=== PATIENT | female | born 1960 | race Caucasian/White ===

== ENCOUNTER 2024-10-16 14:22 | Emergency (ER) | payer BC, SELFPAY ==
[2024-10-16 14:26] VITALS: BP 121/76
[2024-10-16 14:41] LABS: % Basophils 0.6 % (0-2); % Eosinophils 1.2 % (0-6); % Immature Granulocytes 0.4 % (0-0.5); % Monocytes 7.8 % (1.7-9.3); Absolute Eosinophils 0.1 10^3/uL (0-0.7); Absolute Lymphocytes 2.3 10^3/uL (1.2-3.4); Absolute Monocytes 0.5 10^3/uL (0.1-0.6); Absolute Neutrophils 3.8 10^3/uL (1.4-6.5); Hemoglobin 13.8 g/dL (12.0-16.0); Mean Corp Hgb Conc. 34.5 g/dL (33.0-37.0); Mean Corpuscular Hgb 31.3 pg (27.0-31.0); Mean Corpuscular Volume 90.7 fL (81.0-99.0); Mean Platelet Volume 9.9 fL (7.4-10.4); Nucleated Red Blood Cells % 0 %; Platelet Count 301 10^3/uL (130-400); Red Blood Cell Count 4.41 10^6/uL (4.20-5.40); Red Cell Dist. Width 12.6 % (11.5-14.5); White Blood Cell Count 6.8 10^3/uL (4.8-10.8)
[2024-10-16 14:54] LABS: ALT (SGPT) 18 U/L (0-35); AST (SGOT) 29 U/L (14-36); Albumin 4.9 g/dl (3.5-5.0); Alkaline Phosphatase 62 U/L (38-126); Blood Urea Nitrogen 16 mg/dl (7-17); Calcium 9.3 mg/dl (8.4-10.2); Carbon Dioxide 27 mmol/L (22-30); Chloride 105 mmol/L (98-107); Glucose 69 mg/dl (70-99); Potassium 4.4 mmol/L (3.5-5.1); Sodium 142 mmol/L (135-145); Total Bilirubin 0.3 mg/dl (0.2-1.3); Total Protein 7.6 g/dl (6.3-8.2); eGFR > 60.00
[2024-10-16 18:36] VITALS: BP 122/79
--- NOTE | 2024-10-16 19:10 | ED.GENMED ---
Addendum entered and electronically signed by WINIFRED Paz 10/17/24 01:31:
Sed rate and CRP normal. Glucose slightly low, encouraged patient to eat.
Original Note:
History of Present Illness
General
Chief Complaint: Headache
Source: patient
Exam Limitations: none
Time Seen by Provider: 10/16/24 19:00
History of Present Illness
History of Present Illness:
This is a 64 year old female that comes in with c/o right sided headache pain. States that this started yesterday and it doesn't feel like a normal headache. States that it is pressure. States that she felt worse today so she felt she better get it
checked. States that she was a little nauseated with the headache in the morning. Denies any fever, chills, chest pain, SOB, abd pain, vomiting, diarrhea, dizziness, urinary burning.
Past History
Past History
ED Past Medical History: Asthma, Psychiatric (Depression) and Other (Cervical dystonia, PNA)
ED Past Surgical History: , Gynecological (Hyesterectomy) and Other (hernia)
Social History
Tobacco: Non-smoker
Alcohol: None
Drug: None
Personal:
Living: with family
Review of Systems
Review of Systems
All Other Systems: ROS reviewed and negative except as documented in HPI and ROS
Constitutional: Reports no symptoms; Denies fever or chills
EENT: Reports no symptoms
Respiratory: Reports no symptoms; Denies cough or trouble breathing
Cardiac: Reports no symptoms; Denies chest pain
ABD/GI: Reports nausea; Denies abdominal pain, vomiting or diarrhea
: Reports no symptoms; Denies dysuria, frequency or urgency
Musculoskeletal: Reports no symptoms
Skin: Reports no symptoms
Neurological: Reports headache (right sided); Denies dizzy
Psychiatric: Reports no symptoms
Phy Exam
General Physical Exam
General Presentation: well appearing and no apparent distress
General age: appears stated age
General Skin: warm and dry
General Habitus: normal
General Mental: alert
General Hydration: appears well hydrated
ENT Exam
ENT Exam: TM's normal, pharynx normal and neck supple
Eye Exam
Eye Exam: EOMI
Cardiovascular Exam
Cardiovascular Exam: regular rate/rhythm, no edema, no murmur and normal peripheral pulses
Pulmonary Exam
Pulmonary Exam: lungs clear, no respiratory distress, no rales, chest non tender, no crackles, no rhonchi, no wheezing and no cough
Musculoskeletal Exam
Musculoskeletal Exam: full ROM (Patient walked into the exam room)
Skin Exam
Skin Exam: normal color, warm/dry, no rash and no petechia
Psychiatric Exam
Psychiatric Exam: normal mood/affect
Course
Orders/Labs/Results
Orders:
Orders
10/16/24 14:29
CT Head W/o Iv Contrast Urgent
Comment: intermit nausea
Reason For Exam: pressure to right side of head since yesterday
10/16/24 14:35
Complete Blood Count/With Diff Urgent
Comprehensive Metabolic Panel Urgent
10/16/24 19:10
Add On- LAB Urgent
Tests Added?: Sed rate, CRP
Abnormal Lab Results
10/16/24
14:35
MCH 31.3 H pg
(27.0-31.0)
Glucose 69 L mg/dl
(70-99)
10/16/24 14:35
10/16/24 14:35
Glucose slightly low
Vital Signs
Initial and Last Documented VS:
Initial Vital Signs
Temp Pulse Resp BP Pulse Ox
97.8 F 78 16 121/76 78
10/16/24 14:26 10/16/24 14:26 10/16/24 14:26 10/16/24 14:26 10/16/24 14:26
Last Documented Vital Signs
Temp Pulse Resp BP Pulse Ox
98.2 F 72 16 122/79 100
10/16/24 18:36 10/16/24 18:36 10/16/24 18:36 10/16/24 18:36 10/16/24 18:36
MDM/Problems Addressed
Differential Diagnosis Includes:
Headache, Shingles. Trigeminal neuralgia
MDM/Problems Addressed:
This is a 64 year old female that comes in with c/o right sided headache pain.
Labs and CT of head obtained. Will add Sed rate and CRP.
Explained to patient that her CT of the head and blood work is normal. Will add on other labs. Patient to alternate with Tylenol and Ibuprofen. Will also watch for any rash and follow up with the family doctor for further evaluation. Patient to
return with any concerns.
Chronic conditions affecting care:
NA
Acute Exacerbation and/or Progression of Chronic Illness:
NA
*Radiology
Radiology exam reviewed: radiology read reviewed (CT head-NO acute intracranial abnormality noted. )
*Pulse Oximetry
Patient hypoxic: no
*EKG
Interpreted by ED Provider?: NA
Rate: EKG- N/A
*Manager Music Interpretation
Rate: Manager Music- N/A
*Critical Care Note
Total Time (30-74mins, 75-104mins- exclusive of procedures): Not Applicable
ED Attending Note
-
Portions of this chart may have been created with voice recognition software.� Occasional wrong word or��sound alike� substitutions may have occurred due to the inherent limitations of voice recognition software.
Discharge Plan
Departure
Patient Disposition: Home (Routine Discharge)
Date of Disposition: 10/16/24
Time of Disposition: 19:16
Patient with high blood pressure during this ER visit?: No
Condition: Good
Covid-19: Not Applicable
Discharge Problem:
Headache
Instructions: Headache, Adult (DC)
Prescriptions:
No Action
calcium carbonate [Calcium 500] 500 MG tablet
500 mg PO DAILY
esomeprazole magnesium [Nexium] 40 MG capsule,delayed release(DR/EC)
40 mg PO DAILY
sertraline 25 MG tablet
25 mg PO DAILY
[id number]-pxu-[id number]-Wa-Rm-pzwgifl-lutein 1 EACH tablet
1 tab PO DAILY
VITAMIN C
DAILY
VITAMIN D
DAILY
dicyclomine [Bentyl] 20 MG tablet
20 mg PO Q6H PRN (Reason: abdominal pain) Qty: 20 0RF
hydrocodone-acetaminophen 5-325 mg tablet
1 tab PO Q8H PRN (Reason: pain) Qty: 10 0RF
prednisone 10 mg Tablet
See Rx Instructions .ROUTE .COMPLEX Qty: 30 0RF
Rx Instructions:
Take By Mouth:
40 mg daily x3 days, 30 mg daily x3 days,
20 mg daily x3 days, 10 mg daily x3 days.
Activity Restrictions/Additional Instructions:
As discussed, your blood work is normal along with your CT scan. Please watch for any rash on the right sided of the face or head. Further blood work was added to the blood work that you have drawn earlier. Please increase your water intake to 8-8oz
glasses daily. You may use Tylenol 1000mg every 6 hours and Ibuprofen 600mg every 6 hours with food for headache pain. Please alternate them, so if you take Tylenol at 9am you can take Ibuprofen at 12 noon and then the Tylenol again at 3pm and the
Ibuprofen at 6pm. Follow up with the family doctor for further evaluation. IF YOU HAVE INCREASED OR CHANGING HEADACHE PAIN, OR YOU HAVE ANY OTHER CONCERNS PLEASE RETURN TO THE EMERGENCY ROOM.
Interventions
Interventions:
*Risk Screen - Suicide Last Done: 10/16/24 14:26
*Neglect/Abuse Screening Last Done: 10/16/24 14:26
Discharge Date and Time
Print Language: ITALIAN
[2024-10-16 19:30] LABS: Erythrocyte Sed Rate 15 mm/hour (0-20)
[2024-10-16 20:05] LABS: C-Reactive Protein < 5.00 mg/L (0.0-10.00)
--- NOTE | 2024-10-17 01:29 | ED.GENMED ---
History of Present Illness
General
Chief Complaint: Headache
Time Seen by Provider: 10/16/24 19:00
Past History
Past History
ED Past Medical History: Asthma, Psychiatric (Depression) and Other (Cervical dystonia, PNA)
ED Past Surgical History: , Gynecological (Hyesterectomy) and Other (hernia)
Social History
Tobacco: Non-smoker
Alcohol: None
Drug: None
Personal:
Living: with family
Course
Orders/Labs/Results
Orders:
Orders
10/16/24 14:29
CT Head W/o Iv Contrast Urgent
Comment: intermit nausea
Reason For Exam: pressure to right side of head since yesterday
10/16/24 14:35
C-Reactive Protein Urgent
Comment: ADD ON
Complete Blood Count/With Diff Urgent
Comprehensive Metabolic Panel Urgent
Erythrocyte Sed Rate Urgent
Comment: ADD ON
10/16/24 19:10
Add On- LAB Urgent
Tests Added?: Sed rate, CRP
Abnormal Lab Results
10/16/24
14:35
MCH 31.3 H pg
(27.0-31.0)
Glucose 69 L mg/dl
(70-99)
10/16/24 14:35
10/16/24 14:35
Glucose very slightly low, Patient encouraged to eat Sed rate normal at 15, CRP Normal <5.0
Vital Signs
Initial and Last Documented VS:
Initial Vital Signs
Temp Pulse Resp BP Pulse Ox
97.8 F 78 16 121/76 78
10/16/24 14:26 10/16/24 14:26 10/16/24 14:26 10/16/24 14:26 10/16/24 14:26
Last Documented Vital Signs
Temp Pulse Resp BP Pulse Ox
98.2 F 72 16 122/79 100
10/16/24 18:36 10/16/24 18:36 10/16/24 18:36 10/16/24 18:36 10/16/24 18:36
ED Attending Note
-
Portions of this chart may have been created with voice recognition software.� Occasional wrong word or��sound alike� substitutions may have occurred due to the inherent limitations of voice recognition software.
Discharge Plan
Departure
Patient Disposition: Home (Routine Discharge)
Date of Disposition: 10/16/24
Time of Disposition: 19:16
Patient with high blood pressure during this ER visit?: No
Condition: Good
Covid-19: Not Applicable
Discharge Problem:
Headache
Instructions: Headache, Adult (DC)
Prescriptions:
No Action
calcium carbonate [Calcium 500] 500 MG tablet
500 mg PO DAILY
esomeprazole magnesium [Nexium] 40 MG capsule,delayed release(DR/EC)
40 mg PO DAILY
sertraline 25 MG tablet
25 mg PO DAILY
[id number]-jfa-VC-Bu-Ge-jhhrdqd-lutein 1 EACH tablet
1 tab PO DAILY
VITAMIN C
DAILY
VITAMIN D
DAILY
dicyclomine [Bentyl] 20 MG tablet
20 mg PO Q6H PRN (Reason: abdominal pain) Qty: 20 0RF
hydrocodone-acetaminophen 5-325 mg tablet
1 tab PO Q8H PRN (Reason: pain) Qty: 10 0RF
prednisone 10 mg Tablet
See Rx Instructions .ROUTE .COMPLEX Qty: 30 0RF
Rx Instructions:
Take By Mouth:
40 mg daily x3 days, 30 mg daily x3 days,
20 mg daily x3 days, 10 mg daily x3 days.
Activity Restrictions/Additional Instructions:
As discussed, your blood work is normal along with your CT scan. Please watch for any rash on the right sided of the face or head. Further blood work was added to the blood work that you have drawn earlier. Please increase your water intake to 8-8oz
glasses daily. You may use Tylenol 1000mg every 6 hours and Ibuprofen 600mg every 6 hours with food for headache pain. Please alternate them, so if you take Tylenol at 9am you can take Ibuprofen at 12 noon and then the Tylenol again at 3pm and the
Ibuprofen at 6pm. Follow up with the family doctor for further evaluation. IF YOU HAVE INCREASED OR CHANGING HEADACHE PAIN, OR YOU HAVE ANY OTHER CONCERNS PLEASE RETURN TO THE EMERGENCY ROOM.
Interventions
Interventions:
*Risk Screen - Suicide Last Done: 10/16/24 14:26
*Neglect/Abuse Screening Last Done: 10/16/24 14:26
ED- Fall Risk Assessment Last Done: 10/16/24 19:15
*Nursing Disposition Last Done: 10/16/24 19:20
ED- Neurological Assessment Last Done: 10/16/24 19:15
Discharge Date and Time
Discharge Date/Time: 10/16/24 19:25
Print Language: MAORI
== END 2024-10-16 19:25 | disposition home or self-care (01) ==
LOC: EMR 14:22
PROVIDERS: Emergency Medicine; EMERGENCY PHYSICIAN Emergency Medicine; FAMILY PHYSICIAN Family Medicine
DX: R51.9 Headache, unspecified (principal); J45.909 Unspecified asthma, uncomplicated
CPT/HCPCS: 99284; 70450; 80053; 85025; 85652; 86140